=== PATIENT | male | born 1980 | race African-American/Black ===

== ENCOUNTER 2016-12-22 21:15 | Emergency (ER) | payer MEDICAID, OTHER ==
[~2016-12-22] VITALS: Ht 172.7 cm; Wt 134.3 kg
[~2016-12-22 21:15] MED LIST: MECLIZINE HCL25 MG ORAL
[2016-12-22] MEDS ORDERED: NKM (21:26)
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
[2016-12-22 22:00] VITALS: BP 151/97
[2016-12-22 23:07] VITALS: BP 165/117
--- NOTE | 2016-12-23 09:52 | Diagnostic Imaging Report ---
Indication: PAIN Technique: Continuous helical CT scanning of the head was performed without intravenous contrast material. Axial and coronal 5 mm sections were generated. Radiation dose was minimized using automated exposure control Dose: Total Dose Length Product - DLP [address] Dose Index - CTDIvol(s) 70.38 mGy. Comparison: None Findings: The ventricular system is normal in size and configuration. There is no shift of midline structures. No abnormal extra-axial fluid collections are noted. There is no evidence of intracerebral bleeding. No other abnormal high or low density areas are noted within the brain. There is generalized mild soft tissue thickening in the high parietal scalp. Visualized orbits are unremarkable. The sinuses are clear Impression: Normal CT scan of the head without contrast material. Nonspecific scalp soft tissue thickening This agrees with the preliminary interpretation provided overnight by Dr. Ocasio The CT scanner at [facility] is accredited by the [employer] and the scans are performed using protocols designed to limit radiation exposure to as low as reasonably achievable to attain images of sufficient resolution adequate for diagnostic evaluation.
== END 2016-12-22 23:07 | disposition home or self-care (01) ==
LOC: EMR 21:28
DX: S00.11XA Contusion of right eyelid and periocular area, initial encounter (principal); V43.52XA Car driver injured in collision with other type car in traffic accident, initial encounter; Y93.9 Activity, unspecified; Y92.410 Unspecified street and highway as the place of occurrence of the external cause; Z88.0 Allergy status to penicillin
CPT/HCPCS: 70450; 99284

== ENCOUNTER 2017-11-26 02:27 | Emergency (ER) | payer MEDICAID ==
[~2017-11-26] VITALS: Ht 172.7 cm; Wt 129.3 kg
[~2017-11-26 02:27] MED LIST changes: +NKM
[2017-11-26 02:50] VITALS: BP 139/93
[2017-11-26] MEDS ORDERED: Ketorolac 30mg Inj IV ONE (03:45)
[2017-11-26 03:52] LABS: BASOPHILS % (AUTO) 1.5 % (0.0-2.0); EOSINOPHILS % (AUTO) 1.4 % (0.0-3.0); HEMOGLOBIN 15.5 G/DL (14.2-18.0); MEAN CORPUSCULAR VOLUME 86 FL (80-99); MONOCYTES % (AUTO) 7.8 % (1.0-10.0); NEUTROPHILS % (AUTO) 47.3 % (45.0-75.0); PLATELET COUNT 298 K/UL (150-450); RED BLOOD COUNT 5.44 M/UL (4.70-6.10); RED CELL DISTRIBUTION WIDTH 11.7 % (11.6-14.8); WHITE BLOOD COUNT 8.5 K/UL (4.8-10.8)
[2017-11-26 04:10] LABS: ANION GAP 4 mmol/L (5-15); BLOOD UREA NITROGEN 11 mg/dL (7-18); CALCIUM 9.1 MG/DL (8.5-10.1); CARBON DIOXIDE 31 MMOL/L (21-32); CHLORIDE 99 MMOL/L (98-107); CREATININE 1.2 MG/DL (0.55-1.30); POTASSIUM 4.1 MMOL/L (3.5-5.1); SODIUM 134 MMOL/L (136-145)
[2017-11-26 04:15] LABS: ALANINE AMINOTRANSFERASE 29 U/L (12-78); ALBUMIN 3.4 G/DL (3.4-5.0); ALBUMIN/GLOBULIN RATIO 0.7 (1.0-2.7); ALKALINE PHOSPHATASE 115 U/L (46-116); ASPARTATE AMINO TRANSFERASE 21 U/L (15-37); BILIRUBIN,TOTAL 0.3 MG/DL (0.2-1.0); CREATINE KINASE 463 U/L (26-308)
[2017-11-26] MEDS ORDERED: ACETAMINOPHEN-1 EAC1 ORAL (04:36)
[2017-11-26] MEDS ORDERED: LIDOCAINE700 M1 TP (04:36)
[2017-11-26] MEDS ORDERED: METFORMIN HCL500 M1 ORAL (04:36)
[2017-11-26 04:45] VITALS: BP 139/93
--- NOTE | 2017-11-26 07:45 | Emergency Room Report ---
History of Present Illness General Chief Complaint: Pain Source: Patient Present Illness HPI Patient 37-year-old male who presented after increased right-sided shoulder pain. Patient gradual onset of symptoms over the past 3 days. Patient was having increased difficulty with movement. He reported having recent increased exercise. Patient states that he had increased pain with abduction. He reports having prior football injuries to the shoulder. He denies any numbness to his hands. He reports having some increased pain. He denies any numbness or weakness. Allergies: Coded Allergies: PENICILLINS (Unverified Allergy, Unknown, Shortness of Breath, 05/19/15) Patient History Past Medical History: see triage record Reviewed Nursing Documentation: PMH: Agreed, PSxH: Agreed Nursing Documentation-PMH Past Medical History: No Stated History Hx Hypertension: No Review of Systems All Other Systems: negative except mentioned in HPI Physical Exam Vital Signs Date Time Temp Pulse Resp B/P (MAP) Pulse Ox O2 Delivery O2 Flow Rate FiO2 11/26/17 02:48 97.8 84 16 139/93 97 Room Air 97.9 General Appearance: well appearing, no apparent distress, alert, GCS 15, obese Head: normocephalic, atraumatic ENT: hearing grossly normal, normal voice Neck: full range of motion, supple Respiratory: no respiratory distress, speaking full sentences Gastrointestinal: normal inspection Musculoskeletal: no calf tenderness Neurologic: normal gait Psychiatric: mood/affect normal Skin: no rash Medical Decision Making Diagnostic Impression: Primary Impression: Diabetes Additional Impression: Shoulder strain ER Course Patient presented for right shoulder pain. Differential diagnoses included was not limited to fracture, dislocation, a.c. separation, septic joint. Because of complexity of patient's case laboratory testing and imaging studies were ordered. Patient was given IM Toradol. Patient was given prescription for metformin as left her testing showed evidence of diabetes.The patient is advised to follow up with primary care doctor in 1-2 days. Patient is advised to return if any worsening condition or if any changes in status that are concerning. This report is dictated with [employer] sprinkling truck driver software which may occasionally lead to discrepancies related to use of this software. Labs Test 11/26/17 03:28 White Blood Count 8.5 K/UL (4.8-10.8) Red Blood Count 5.44 M/UL (4.70-6.10) Hemoglobin 15.5 G/DL (14.2-18.0) Hematocrit 47.0 % (42.0-52.0) Mean Corpuscular Volume 86 FL (80-99) Mean Corpuscular Hemoglobin 28.6 PG (27.0-31.0) Mean Corpuscular Hemoglobin Concent 33.1 G/DL (32.0-36.0) Red Cell Distribution Width 11.7 % (11.6-14.8) Platelet Count 298 K/UL (150-450) Mean Platelet Volume 8.4 FL (6.5-10.1) Neutrophils (%) (Auto) 47.3 % (45.0-75.0) Lymphocytes (%) (Auto) 42.0 % (20.0-45.0) Monocytes (%) (Auto) 7.8 % (1.0-10.0) Eosinophils (%) (Auto) 1.4 % (0.0-3.0) Basophils (%) (Auto) 1.5 % (0.0-2.0) Erythrocyte Sedimentation Rate 30 MM/HR (0-15) Sodium Level 134 MMOL/L (136-145) Potassium Level 4.1 MMOL/L (3.5-5.1) Chloride Level 99 MMOL/L (98-107) Carbon Dioxide Level 31 MMOL/L (21-32) Anion Gap 4 mmol/L (5-15) Blood Urea Nitrogen 11 mg/dL (7-18) Creatinine 1.2 MG/DL (0.55-1.30) Estimat Glomerular Filtration Rate > 60 mL/min (>60) Glucose Level 374 MG/DL (74-106) Calcium Level 9.1 MG/DL (8.5-10.1) Total Bilirubin 0.3 MG/DL (0.2-1.0) Aspartate Amino Transf (AST/SGOT) 21 U/L (15-37) Alanine Aminotransferase (ALT/SGPT) 29 U/L (12-78) Alkaline Phosphatase 115 U/L (46-116) Total Creatine Kinase 463 U/L (26-308) Total Protein 8.3 G/DL (6.4-8.2) Albumin 3.4 G/DL (3.4-5.0) Globulin 4.9 g/dL Albumin/Globulin Ratio 0.7 (1.0-2.7) Last Vital Signs Date Time Temp Pulse Resp B/P (MAP) Pulse Ox O2 Delivery O2 Flow Rate FiO2 11/26/17 04:45 97.8 84 16 139/93 97 Room Air 97.8 Status: improved Disposition: HOME, SELF-CARE Condition: Stable Scripts Acetaminophen With Codeine (T#3) (TYLENOL #3 TAB*) Y Tab 1 TAB ORAL Q4H Y for For Pain, #20 TAB Prov: James Matute 11/26/17 Lidocaine (Lidocaine) 1 Each Adh..patch 5 % TP DAILY, #30 PATCH Prov: James Matute 11/26/17 Metformin Hcl* (METFORMIN HCL*) 500 Mg Tablet 500 MG ORAL TWICE A DAY, #60 TAB Prov: James Matute 11/26/17 Referrals: [facility],REFERRING (PCP) Departure Forms: Return to Work Return to Work in (Days): 3 Other Restrictions: light duty Patient Instructions: Shoulder Pain, Diabetes Mellitus and Food James Matute Nov 26, 2017 07:45
--- NOTE | 2017-11-26 11:59 | Diagnostic Imaging Report ---
Indication: Pain x1 week Technique: 3 views of the left shoulder Comparison: None Findings: No acute fractures or dislocations. Joint spaces are preserved. Impression: Negative
== END 2017-11-26 04:45 | disposition home or self-care (01) ==
LOC: EMR 03:18
DX: S46.911A Strain of unspecified muscle, fascia and tendon at shoulder and upper arm level, right arm, initial encounter (principal); X58.XXXA Exposure to other specified factors, initial encounter; Y92.9 Unspecified place or not applicable; E11.9 Type 2 diabetes mellitus without complications; Z88.0 Allergy status to penicillin
CPT/HCPCS: 36415; 73030; 80053; 82550; 85025; 85651; 96374; 99284; J1885